=== PATIENT | female | born 1960 | race Caucasian/White ===

== ENCOUNTER 2020-04-26 16:16 | Emergency (ER) | payer OTHER ==
[2020-04-26 16:30] VITALS: BP 145/90; PULSE 68; TEMP 98.7; BMI 25.0
[2020-04-26] MEDS ORDERED: KETOROLAC TROMETHAMINE 30 MG/1 ML VIAL IM ONE (17:35)
[2020-04-26] MEDS ORDERED: KETOROLAC TROMETHAMINE 30 MG/1 ML VIAL ONE (17:37)
== END 2020-04-26 19:06 | disposition home or self-care (01) ==
LOC: FER 16:16 → SUPCPDRO 16:16 → FER 19:06
PROC: 3E023GC Introduction of Other Therapeutic Substance into Muscle, Percutaneous Approach (ICD-10-PCS; principal; 2020-04-26)
DX: S52.571A Other intraarticular fracture of lower end of right radius, initial encounter for closed fracture (principal); W01.0XXA Fall on same level from slipping, tripping and stumbling without subsequent striking against object, initial encounter
CPT/HCPCS: 73090-TC-RT-FY; 73110-TC-LT-FY; 73110-TC-RT-FY; 73130-TC-LT-FY; 73130-TC-RT-FY; 99284-25

== ENCOUNTER 2020-08-22 20:07 | Emergency (ER) | payer OTHER ==
[2020-08-22 20:21] VITALS: BP 130/71; PULSE 63; TEMP 98.3; BMI 25.8
[2020-08-22] MEDS ORDERED: KETOROLAC TROMETHAMINE 60 MG/2 ML VIAL ONE (20:28)
[2020-08-22] MEDS ORDERED: KETOROLAC TROMETHAMINE 60 MG/2 ML VIAL IM ONE (20:29)
== END 2020-08-22 22:13 | disposition home or self-care (01) ==
LOC: FER 20:07
PROC: 3E0233Z Introduction of Anti-inflammatory into Muscle, Percutaneous Approach (ICD-10-PCS; principal; 2020-08-22)
DX: S13.4XXA Sprain of ligaments of cervical spine, initial encounter (principal)
CPT/HCPCS: 72050-TC-FY; 99284-25